=== PATIENT | female | born 1985 | race Caucasian/White ===

== ENCOUNTER 2017-09-29 20:26 | Inpatient (IN) | payer OTHER ==
[~2017-09-29] VITALS: Ht 162.6 cm; Wt 79.4 kg
[2017-09-30] MEDS ORDERED: PRENATAL 19 TA1 EACH PO (08:34)
== END 2017-10-03 14:48 | disposition home or self-care (01) | DRG 603 ==
LOC: OBS/DEL 20:26 → LDR 09-30 12:11 → OB/GYN 09-30 12:11
PROC: 4A1HXCZ Monitoring of Products of Conception, Cardiac Rate, External Approach (ICD-10-PCS; principal; 2017-09-30)
DX: L03.032 Cellulitis of left toe (principal); O47.03 False labor before 37 completed weeks of gestation, third trimester

== ENCOUNTER 2017-10-13 15:54 | Inpatient (IN) | payer OTHER ==
[~2017-10-13] VITALS: Ht 162.6 cm; Wt 81.2 kg
[~2017-10-13 15:54] MED LIST: PRENATAL 19 TA1 EACH PO
[2017-10-14] MEDS ORDERED: NIFE60TA3 PO (16:22)
== END 2017-10-15 15:30 | disposition home or self-care (01) | DRG 775 ==
LOC: LDR 15:54 → OB/GYN 23:58
PROC: 10E0XZZ Delivery of Products of Conception, External Approach (ICD-10-PCS; principal; 2017-10-13)
PROC: 10907ZC Drainage of Amniotic Fluid, Therapeutic from Products of Conception, Via Natural or Artificial Opening (ICD-10-PCS; 2017-10-13)
PROC: 3E033VJ Introduction of Other Hormone into Peripheral Vein, Percutaneous Approach (ICD-10-PCS; 2017-10-13)
PROC: 4A1HXCZ Monitoring of Products of Conception, Cardiac Rate, External Approach (ICD-10-PCS; 2017-10-13)
DX: O99.824 Streptococcus B carrier state complicating childbirth (principal); Z3A.38 38 weeks gestation of pregnancy; Z37.0 Single live birth

== ENCOUNTER 2017-12-01 13:58 | Day surgery (SDC) | payer OTHER ==
[~2017-12-01 13:58] MED LIST changes: +AMOXICILLIN250 MG PO; +NIFE60TA3 PO; +OMEGA 3 500 SO1 EACH PO; +VITAMIN D400 UNI5 PO
== END 2017-12-01 21:00 | disposition home or self-care (01) ==
LOC: CIR.AMB 13:58
DX: Z30.2 Encounter for sterilization (principal)